=== PATIENT | female | born 1980 | race Caucasian/White ===

== ENCOUNTER 2017-08-24 18:51 | Emergency (ER) | payer MEDICAID ==
[~2017-08-24] VITALS: Ht 162.6 cm; Wt 98.0 kg
[2017-08-24 19:01] VITALS: BP 146/93
--- NOTE | 2017-08-24 19:30 | NUR ---
Patient being evaluated by at bedside.
[2017-08-24] MEDS ORDERED: NACL 0.9% 1,000 ML IV ONE (19:35)
[2017-08-24] MEDS ORDERED: INSULIN HUMAN REGULAR 100 UNITS/ML 10 ML VIAL SUBQ ONE (19:35)
--- NOTE | 2017-08-24 19:51 | NUR ---
UA AND BLOOD SENT TO LAB
--- NOTE | 2017-08-24 19:55 | NUR ---
37Y/F PT. PRESENTS TO ED WITH C/O DIZZINESS. HX. DM ON METFORMIN. AAO X4, AMBULATORY WITH STEDAY GAIT. REPSIRTAIONS , EVEN AND UNLABORED, GCS 15. SKIN WARM AND DRY TO TOUCH. C/O HEADACHE 06/03. VSS, ER MADE AWARE OF PT. STATUS.
[2017-08-24 20:00] LABS: BASOPHILS # (AUTO) 0.2 K/uL (0.00-0.22); BASOPHILS % (AUTO) 2.4 % (0.0-2.0); EOSINOPHILS # (AUTO) 0.1 K/uL (0-0.4); EOSINOPHILS % (AUTO) 1.7 % (0.0-4.0); HEMATOCRIT 40.2 % (36-48); HEMOGLOBIN 13.4 g/dL (12.0-16.0); LYMPHOCYTES # (AUTO) 3.6 K/uL (2.5-16.5); MEAN CORPUSCULAR HEMOGLOBIN 29 pg (27-31); MEAN CORPUSCULAR HGB CONC 33 g/dL (33-37); MEAN CORPUSCULAR VOLUME 87 fL (80-94); MONOCYTES # (AUTO) 0.5 K/uL (0.8-1.0); MONOCYTES % (AUTO) 6.1 % (1.7-9.3); NEUTROPHILS # (AUTO) 4.4 K/uL (1.8-7.7); NEUTROPHILS % (AUTO) 48.8 % (42.2-75.2); PLATELET COUNT (AUTO) 235 K/uL (140-450); RED CELL DISTRIBUTION WIDTH 11.8 % (11.6-13.7); WHITE BLOOD COUNT (AUTO) 8.8 K/uL (4.8-10.8)
[2017-08-24 20:22] LABS: APPEARANCE,URINE CLEAR (CLEAR); BILIRUBIN,URINE NEGATIVE (NEGATIVE); BLOOD, URINE NEGATIVE (NEGATIVE); COLOR,URINE YELLOW (YELLOW); LEUKOCYTE ESTERASE ,URINE TRACE (NEGATIVE); NITRITE, URINE NEGATIVE (NEGATIVE); PH,URINE 6.5 (5.0-9.0); UGLUCOSE 3+ (NEGATIVE)
[2017-08-24 20:23] LABS: ACETONE, SERUM NEGATIVE (NEGATIVE)
[2017-08-24 20:26] LABS: ALBUMIN 3.8 g/dL (3.4-5.0); ANION GAP 11.9 (8-16); ASPARTATE AMINOTRANSFERASE 55 U/L (15-37); CARBON DIOXIDE 26.9 mmol/L (21-32); CHLORIDE 99 mmol/L (98-107); CREATININE 0.7 mg/dL (0.6-1.3); GFR ARICAN-AMERICAN 120 mL/min (>90); POTASSIUM 3.8 mmol/L (3.5-5.1); SODIUM SERUM 134 mmol/L (136-145); TOTAL BILIRUBIN 0.3 mg/dL (0.0-1.0); UREA NITROGEN, BLOOD 12 mg/dL (7-18)
[2017-08-24 20:33] LABS: GLUCOSE 480 mg/dL (74-106)
[2017-08-24 20:40] LABS: RBC,URINE NONE SEEN /HPF (0-5); WBC,URINE 0-5 (RARE) /HPF (0-5)
[2017-08-24 20:41] LABS: TRICHOMONAS,URINE Moderate /HPF (None Seen)
[2017-08-24 21:17] VITALS: BP 110/64
--- NOTE | 2017-08-24 21:18 | NUR ---
Patient discharged with v/s stable. Written and verbal after care instructions given and explained. Patient alert, oriented and verbalized understanding of instructions. Ambulatory with steady gait. All questions addressed prior to discharge. ID band removed. Patient advised to follow up with PMD. Rx of METFORMIN 500 MG. FIRIOCET 50/325/40 MG, FLAGIL 500 MG given. Patient educated on indication of medication including possible reaction and side effects. Opportunity to ask questions provided and answered.
== END 2017-08-24 21:18 | disposition home or self-care (01) ==
LOC: MED 18:51
DX: G44.209 Tension-type headache, unspecified, not intractable (principal); A59.9 Trichomoniasis, unspecified; E11.9 Type 2 diabetes mellitus without complications; Z91.040 Latex allergy status
CPT/HCPCS: 36415; 80053; 81001; 81025; 82009; 82948; 85025; 96360; 96372; 99284; J1815; J7030

== ENCOUNTER 2019-01-11 20:29 | Emergency (ER) | payer MEDICAID ==
[~2019-01-11] VITALS: Ht 162.6 cm; Wt 95.3 kg
[2019-01-11 20:40] VITALS: BP 142/95
--- NOTE | 2019-01-11 20:44 | NUR ---
PT TAKEN TO BED 11
--- NOTE | 2019-01-11 21:00 | NUR ---
38/F presents to ED with complaints of rash to bilateral arms. Pt c/o itchiness. NAD noted.
[2019-01-11 22:53] VITALS: BP 142/95
--- NOTE | 2019-01-11 22:53 | NUR ---
PATIENT LEFT WITHOUT BEING SEEN BY DR. DR. GODINEZ. NO FURTHER CARE PROVIDED FOR PATIENT.
== END 2019-01-11 22:53 | disposition left against medical advice (07) ==
LOC: MED 20:29
DX: R21 Rash and other nonspecific skin eruption (principal); Z53.21 Procedure and treatment not carried out due to patient leaving prior to being seen by health care provider